=== PATIENT | female | born 1965 | race Caucasian/White ===

== ENCOUNTER 2021-05-22 11:34 | Outpatient (CLI) | payer OTHER, SELFPAY ==
--- NOTE | 2021-05-22 11:30 | ECG_ITS ---
Measurements Intervals [place] Rate: 61 P: 52 [place]: 162 QRS: -31 QRSD: 94 T: 4 QT: 428 QTc: 433 Interpretive Statements SINUS RHYTHM LEFT AXIS DEVIATION INCOMPLETE RIGHT BUNDLE BRANCH BLOCK POOR R WAVE PROGRESSION, ANTERIOR LEADS BORDERLINE T WAVE ABNORMALITY- INFERIOR LEADS BASELINE ARTIFACT- I, II, AVR, AVL BORDERLINE ECG Electronically Signed On 05-22-2021 12:14:52 HOOKER INSPECTOR by Adair Allen D.O.
[2021-05-22 12:18] LABS: Anion Gap 7 mmol/L (8-16); Blood Urea Nitrogen 10 mg/dL (7-17); Calcium 9.5 mg/dL (8.4-10.2); Carbon Dioxide 31 mmol/L (22-30); Chloride 96 mmol/L (98-107); Estimated Glomerular Filt Rate > 60; Glucose 96 mg/dL (65-110); Potassium 3.4 mmol/L (3.4-5.0); Sodium 134 mmol/L (137-145)
== END 2021-05-22 11:35 | disposition home or self-care (01) ==
LOC: ANHSURGERY 11:39
PROVIDERS: Anesthesiology; PCP Family Medicine; Visit Provider Obstetrics & Gynecology
DX: N93.9 Abnormal uterine and vaginal bleeding, unspecified (principal); E11.9 Type 2 diabetes mellitus without complications; I10 Essential (primary) hypertension; Z79.899 Other long term (current) drug therapy; Z01.818 Encounter for other preprocedural examination
CPT/HCPCS: 36415; 80048; 86850; 86900; 86901; 93005

== ENCOUNTER 2021-05-25 18:46 | Observation (INO) | payer OTHER, SELFPAY ==
[2021-05-21 14:38] VITALS: BMI 31.4
--- NOTE | 2021-05-21 14:54 | PC.NURSE ---
Report to the Outpatient Waiting Room, entrance under the green pavilion located off [facility], at time 10:00 on date 05/24/21. OR Time: 12:00. - You and your visitor will be asked a series of questions to screen for COVID 19 for your protection. - A mask is required within the hospital. - Only one visitor is allowed at this time. Patient visitors will be guided where to wait when not with patient. Preoperative COVID Testing Requirements: No COVID Test needed if: (proof is required; if not received patient will have Rapid Test prior to entry) - Patient has received COVID Vaccine at least 14 days prior to procedure date or - Patient has positive COVID test result within last 90 days of surgery date. COVID Test needed if above criteria is not met If not COVID vaccinated a COVID test must be conducted within 72 hours of surgery and patient is asked to isolate self from time of testing until procedure. You will go to the [email or web address] for your COVID testing. The [email or web address] is located at the corner of [address] [facility]. You will only be called if COVID results are positive and your surgeon may reschedule your elective surgery date. Patients may have clear liquids (water, carbonated beverages, clear teas, apple juice) until 3 hours prior to surgery with a maximum of 20 ounces. - No food from midnight until time of surgery - Infants may have breast milk until 4 hours before surgery, infant formula 6 hours prior to surgery. - Children will be allowed to drink immediately following surgery. If applicable, please bring a bottle or sippy cup to assist with drinking. Juice, water, soda, and popsicles are readily available. For infants on formula, please bring formula the day of surgery. Pacifiers are allowed. Take the following medications with a SIP of water the morning of surgery: PAROXETINE, INHALERS (AND BRING ALBUTEROL WITH YOU) Medications to discontinue per physician: VITAMINS/SUPPLEMENTS Date to take last dose: 3 DAYS PRE-OP Please no make-up, nail malawian, hairspray, perfume, deodorant, or body powder the day of surgery. No jewelry (including any body piercings) or valuables the day of surgery, leave them at home. Please take a shower or bath the night before, or the morning of, surgery with an antibacterial soap. Wear comfortable, loose fitting clothing. Children are encouraged to wear pajamas. - Jewelry must be removed prior to entering the operating room. Rings and piercings that are not removed may be cut off. - The hospital will not accept responsibility for valuables. - Please leave all valuables, including medications, at home the day of surgery. If you are going home after surgery, a licensed bulk tank driver must drive you home. - NO public transportation without another adult. - We recommend that an adult stay with you for 24 hours following discharge. - We also recommend that you do not drive, make important decision, drink alcoholic beverages, or take any drugs that were not prescribed by your health care provider for at least 24 hours after your discharge time. For Pediatric surgeries, we recommend two adults accompany the child home (only one inside the building at this time). Follow any additional instructions given to you from your surgeon. Telephone instructions given to DANUTA ABRAHAM and asked if any additional questions and then verbalized understanding. Patient advised to call surgeon office or pre surgery nurse liaison [phone] if any additional questions.
--- NOTE | 2021-05-23 14:46 | WPDANESEPPF ---
Anes - Initial Pre Proc Eval Procedure: Operation Date: 05/24/21 12:00 Proposed Procedures p Laparoscopic Assisted Vaginal Hysterectomy - Umer Kraus MD Date/Time: 05/23/21 14:46 Surgeon: Umer Kraus MD Pre Op Diagnosis: Abnormal Uterine Bleeding Patient Data Age: 55 Gender: F Height: 1.64 m Weight: 84.37 kg Allergies Allergy/AdvReac Type Severity Reaction Status Date / Time Penicillins Allergy Severe Hives Verified 05/21/21 14:28 codeine AdvReac Intermediate Nausea and Verified 05/21/21 14:28 Vomiting Home Medications Medication Instructions Recorded Confirmed Type Isaflush 200 mg PO DAILY 05/21/21 05/24/21 History albuterol sulfate 1 inh INHALATION QID PRN 05/21/21 05/24/21 History atorvastatin 10 mg PO HS 05/21/21 05/24/21 History azelastine 2 spray INTRANASAL HS 05/21/21 05/24/21 History cetirizine [Zyrtec] 10 mg PO HS 05/21/21 05/24/21 History fluticasone propion-salmeterol 2 puff INHALATION BID 05/21/21 05/24/21 History [Advair HFA] fluticasone propionate [Flonase 2 spray INTRANASAL HS 05/21/21 05/24/21 History Allergy Relief] hydrochlorothiazide 25 mg PO DAILY 05/21/21 05/24/21 History losartan 50 mg PO HS 05/21/21 05/24/21 History metformin 500 mg PO BID 05/21/21 05/24/21 History montelukast 10 mg PO HS 05/21/21 05/24/21 History paroxetine HCl 10 mg PO DAILY 05/21/21 05/24/21 History progesterone micronized 100 mg PO HS 05/21/21 05/24/21 History spironolactone 25 mg PO DAILY 05/21/21 05/24/21 History ECG: Date of Service: 05/22/21 Procedure(s): CA 12 lead EKG Accession Number(s): [id number] cc: ~ Measurements Intervals [place] Rate: 61 P: 52 [place]: 162 QRS: -31 QRSD: 94 T: 4 QT: 428 QTc: 433 Interpretive Statements SINUS RHYTHM LEFT AXIS DEVIATION INCOMPLETE RIGHT BUNDLE BRANCH BLOCK POOR R WAVE PROGRESSION, ANTERIOR LEADS BORDERLINE T WAVE ABNORMALITY- INFERIOR LEADS BASELINE ARTIFACT- I, II, AVR, AVL BORDERLINE ECG Electronically Signed On 05-22-2021 12:14:52 LIVER TRIMMER by Adair Allen D.O. Patient hx anesthesia problems: none Family hx anesthesia problems: none Results Review: All pre-operative results and documents have been reviewed as part of the pre-operative evaluation. [facility] Past Medical History Medical History (Updated 05/24/21 @ 08:56 by Umer Kraus MD) Abnormal uterine bleeding (AUB) Arthritis Asthma Diabetes HTN (hypertension) Hypercholesterolemia Obesity Surgical History Surgical History (Updated 05/24/21 @ 08:53 by Umer Kraus MD) History of cholecystectomy History of cholecystectomy Social History Social History Smoking status: Never smoker Alcohol intake: current Alcohol use details: SOCIAL/RARE Substance use: never Substance use type: does not use Living arrangements: with family Spiritual care concerns: No Anes - Eval Final PreProcedure Day of Procedure 05/23/21 14:46 Patient weight: obese Heart: regular rate and rhythm Lungs: clear to auscultation and normal air movement Airway: Mallampati scale class II Neurological: alert and oriented Last oral intake: >/= 8 hours ASA classification: III Emergent: no Anesthetic plan: proceed Anesthesia type and monitoring: general ETT Results Review: All pre-operative results and documents have been reviewed as part of the pre-operative evaluation. Informed Consent: The patient's anesthetic plan and its attendant risks and benefits were discussed with the patient/family/POA. Questions were solicited and answers provided to the satisfaction of the patient/family/POA.
[2021-05-24] VITALS (11 sets, daily range): BP systolic 95–130; BP diastolic 48–82; PULSE 57–70; RESP 9–16; TEMP 36.2–37.3; O2SAT 91–100
--- NOTE | 2021-05-24 08:48 | PM.IMHP ---
H&P: HPI History of Present Illness Date/Time: 05/24/21 08:48 55 y/o nullip with a long history of AUB. Patient s/p ablation in 2019 with no change ein bleeding pattern. Patient using progesterone therapy but still reporting irregular bleeding.EMB shows inactive endometrium. Chief Complaint: abnormal bleeding Review of Systems Review of Systems: fatigue PMFSH Past Medical History Medical History (Updated 05/24/21 @ 08:56 by Umer Kraus MD) Abnormal uterine bleeding (AUB) Arthritis Asthma Diabetes HTN (hypertension) Hypercholesterolemia Obesity Surgical History Surgical History (Updated 05/24/21 @ 08:53 by Umer Kraus MD) History of cholecystectomy History of cholecystectomy Social History Social History Smoking status: Never smoker Alcohol intake: current Alcohol use details: SOCIAL/RARE Substance use: never Substance use type: does not use Living arrangements: with family Spiritual care concerns: No Meds Home Medications and Allergies Home Medications Medication Instructions Recorded Confirmed Type Isaflush 200 mg PO DAILY 05/21/21 05/24/21 History albuterol sulfate 1 inh INHALATION QID PRN 05/21/21 05/24/21 History atorvastatin 10 mg PO HS 05/21/21 05/24/21 History azelastine 2 spray INTRANASAL HS 05/21/21 05/24/21 History cetirizine [Zyrtec] 10 mg PO HS 05/21/21 05/24/21 History fluticasone propion-salmeterol 2 puff INHALATION BID 05/21/21 05/24/21 History [Advair HFA] fluticasone propionate [Flonase 2 spray INTRANASAL HS 05/21/21 05/24/21 History Allergy Relief] hydrochlorothiazide 25 mg PO DAILY 05/21/21 05/24/21 History losartan 50 mg PO HS 05/21/21 05/24/21 History metformin 500 mg PO BID 05/21/21 05/24/21 History montelukast 10 mg PO HS 05/21/21 05/24/21 History paroxetine HCl 10 mg PO DAILY 05/21/21 05/24/21 History progesterone micronized 100 mg PO HS 05/21/21 05/24/21 History spironolactone 25 mg PO DAILY 05/21/21 05/24/21 History Allergies Allergy/AdvReac Type Severity Reaction Status Date / Time Penicillins Allergy Severe Hives Verified 05/21/21 14:28 codeine AdvReac Intermediate Nausea and Verified 05/21/21 14:28 Vomiting Exam Const: General: cooperative Resp: Effort & Inspection: normal respiratory effort Cardio: Rate: regular rate Rhythm: regular rhythm GI: Inspection: normal to inspection Auscultation: normal bowel sounds : Bimanual exam- vagina & uterus: normal bimanual exam and uterine size normal Assessment and Plan Assessment and plan (1) Abnormal uterine bleeding (AUB): Code(s): N93.9 - Abnormal uterine and vaginal bleeding, unspecified Status: Acute Assessment and Plan: Scheduled for a LAVH with BSO. Risk and Benefits reviwed with patient in detail including bleeding, infection, trauma, anesthesia, and blood clots. Patient verbally agrees to proceed.
[2021-05-24] MEDS: ACETAMINOPHEN 500 MG TABLET 1000 MG PO (10:48)
[2021-05-24] MEDS: LACTATED RINGERS 1,000 ML 30 ML IV CONT ×2 (10:48→15:23)
[2021-05-24] MEDS: KETOROLAC 15 MG/ML VIAL (*BKC) IV PUSH (10:49)
--- NOTE | 2021-05-24 12:48 | WPDHPUPDATE1 ---
History and Physical Update Update Date/Time: 05/24/21 12:48 History and Physical has been reviewed, including an updated exam of the patient. There are NO changes in the patient's condition. Risks, benefits, and alternatives have been discussed and questions answered. Patient agrees to proceed with procedure.
[2021-05-24] MEDS: ceFAZolin 2 GM/D5W 50 ML 2 GM/50 ML BAG IVPB (13:10)
[2021-05-24] MEDS: LIDO 1%/EPINEPHRINE 1:100,000 50 ML VIAL 30 ML INFILTRATE (13:53)
[2021-05-24] MEDS: fentaNYL CITRATE INJ (*CRX) 100 MCG/2 ML VIAL 25 MCG IV PUSH ×3 (16:03→16:50)
--- NOTE | 2021-05-24 17:11 | PC.NURSE ---
This patient, Ernestina Nguyen, was received from PACU on 05/24/21 at 1711. Patient/family oriented to unit policies and routines
[2021-05-24] MEDS: DEXTROSE 5%/0.45% SOD CHL 1,000 ML 125 ML IV CONT (17:50)
[2021-05-24] MEDS: KETOROLAC 30 MG/ML VIAL (*BKC) IV PUSH ×2 (17:51→23:51)
[2021-05-24] MEDS: MORPHINE SULFATE (*CRX) 4 MG/ML INJ IV PUSH (19:03)
[2021-05-24] MEDS: metFORMIN HCL 500 MG TABLET PO (19:52)
[2021-05-24] MEDS: SENNA/DOCUSATE SODIUM TABLET 2 TAB PO (20:44)
[2021-05-24] MEDS: LOSARTAN POTASSIUM 50 MG TABLET PO (20:45)
[2021-05-24] MEDS: HYDROcodone/acetaminophen (*CRX) 5-325 MG TABLET 1 TAB PO ×2 (20:45→23:51)
[2021-05-25] MEDS: MORPHINE SULFATE (*CRX) 4 MG/ML INJ IV PUSH (00:57)
[2021-05-25] MEDS: SIMETHICONE 80 MG TAB.CHEW PO ×3 (01:06→08:33)
[2021-05-25] MEDS: HYDROcodone/acetaminophen (*CRX) 10-325 MG TABLET 1 TAB PO ×3 (02:55→10:22)
[2021-05-25 04:50] VITALS: BP 106/57; PULSE 71; RESP 16; TEMP 36.8; O2SAT 99
[2021-05-25] MEDS: ONDANSETRON INJ 4 MG/2 ML VIAL IV PUSH ×2 (05:28→13:07)
[2021-05-25] MEDS: SODIUM CHLORIDE 0.9% IV 500 ML IV CONT ×2 (05:35→19:25)
[2021-05-25] MEDS: FUROSEMIDE INJ 40 MG/4 ML VIAL 10 MG IV PUSH (05:36)
[2021-05-25] MEDS: IBUPROFEN 600 MG TABLET PO (06:07)
[2021-05-25 06:10] LABS: Anion Gap 9 mmol/L (8-16); Basophils Percent Auto 0.1 % (0.2-1.2); Blood Urea Nitrogen 11 mg/dL (7-17); Carbon Dioxide 22 mmol/L (22-30); Chloride 92 mmol/L (98-107); Eosinophils Percent Auto 0.1 % (0-4.4); Estimated CRCL calculation 85 ml/min; Estimated Glomerular Filt Rate > 60; Glucose 125 mg/dL (65-110); Hematocrit 30.5 % (37.0-47.0); Hemoglobin 9.7 g/dL (12.0-15.0); Immature Granulocyte Absolute 0.07 K/mm3 (0.00-0.031); Immature Granulocyte Percent A 0.5 % (0-0.5); Lymphocytes Absolute Auto 1.05 K/mm3 (0.9-3.2); Lymphocytes Percent Auto 7.7 % (18.3-44.2); Mean Corpuscular HGB Conc 31.8 g/dl (32-36); Mean Corpuscular Volume 88.2 fl (80-100); Mean Platelet Volume 11.5 fl (7.4-10.4); Monocytes Absolute Auto 1.1 K/mm3 (0.1-0.6); Monocytes Percent Auto 7.8 % (2.6-8.5); Neutrophils Absolute Auto 11.4 K/mm3 (1.3-6.7); Neutrophils Percent Auto 83.8 % (45.5-73.1); Platelet Count Result 262 k/mm3 (150-375); Potassium 3.6 mmol/L (3.4-5.0); Red Blood Count 3.46 M/mm3 (4.2-5.4); Red Cell Distribution Width 13.5 % (11.5-14.5); Sodium 123 mmol/L (137-145); White Blood Count 13.7 K/mm3 (4.5-10.0)
[2021-05-25] MEDS: FLUTICASONE/SALMETEROL 115-21 MCG INHALER 1 PUFF 2 PUFF INHALATION ×2 (08:16→20:35)
[2021-05-25] MEDS: metFORMIN HCL 500 MG TABLET PO (08:16)
[2021-05-25] MEDS: SPIRONOLACTONE 25 MG TABLET PO (08:17)
[2021-05-25] MEDS: PARoxetine 10 MG TABLET PO (08:17)
[2021-05-25] MEDS: hydroCHLOROthiazide 25 MG TABLET PO (08:17)
[2021-05-25 08:40] VITALS: BP 103/65; PULSE 59; RESP 12; TEMP 36.4; O2SAT 98
--- NOTE | 2021-05-25 09:36 | PM.GYNPNOP ---
GEOPHYSICS TEACHER - A/P Postoperative Procedures: Procedures Operation Date: 05/24/21 12:00 Actual Procedure Side Surgeon p Laparoscopic Assisted Vaginal Hysterectomy with bilateral salpingo-oopherectomy Bilateral Umer Kraus MD Postoperative day: 1 Postoperative status: doing well and other (good urine output post lasix) Postoperative plan: routine post-op care and other (remove rivera and dc later today) Time Spent With Patient Time: Total time spent is greater than 50% in coordination of care (as documented) at patient's floor/unit and/or counseling patient: Time with patient: less than 15 minutes GEOPHYSICS TEACHER- PN:Subj Post-Op Subjective Date/time seen: 05/25/21 09:36 Subjective: patient reports feeling better, pain is well controlled and patient is tolerating oral intake Exam Narrative: inc c/d/i abdomen soft, appropriately tender GEOPHYSICS TEACHER - PN: Obj Data Vital Signs Vital Signs: Vital Signs - 24 hr 05/24/21 10:54 05/24/21 15:22 05/24/21 15:37 Temperature 99.1 F 98.2 F Pulse Rate 68 57 L 63 Respiratory Rate 16 10 L 11 L Blood Pressure 129/77 95/55 L 111/61 Pulse Oximetry 97 100 100 05/24/21 15:52 05/24/21 16:07 05/24/21 16:22 Temperature Pulse Rate 60 57 L 61 Respiratory Rate 14 11 L 9 L Blood Pressure 106/48 L 113/62 112/72 Pulse Oximetry 96 94 91 05/24/21 16:37 05/24/21 16:52 05/24/21 17:15 Temperature 97.2 F L Pulse Rate 64 62 70 Respiratory Rate 12 12 16 Blood Pressure 105/55 L 122/82 130/79 Pulse Oximetry 95 93 97 05/24/21 19:50 05/24/21 23:50 05/25/21 04:50 Temperature 97.8 F 98.0 F 98.2 F Pulse Rate 65 62 71 Respiratory Rate 16 16 16 Blood Pressure 118/71 117/75 106/57 L Pulse Oximetry 97 98 99 05/25/21 08:40 Temperature 97.5 F L Pulse Rate 59 L Respiratory Rate 12 Blood Pressure 103/65 Pulse Oximetry 98 Intake/Output Intake/Output: Intake & Output 05/22/21 05/23/21 05/24/21 05/25/21 23:59 23:59 23:59 23:59 Intake Total 450 3600 Output Total 255 425 Balance 195 3175 Meds/Results Medications: Active Medications Generic Name Dose Route Start Last Admin Trade Name Freq PRN Reason Stop Dose Admin Hydrocodone Bitart/Acetaminophen 1 tab 05/24/21 15:16 05/24/21 23:51 Hydrocodone/Acetaminophen (*Crx) 5-325 Mg Tablet PO 1 tab Q3H PRN Administration Pain Rated 5 or Less Hydrocodone Bitart/Acetaminophen 1 tab 05/24/21 15:16 05/25/21 06:07 Hydrocodone/Acetaminophen (*Crx) 10-325 Mg Tablet PO 1 tab Q3H PRN Administration Pain Rated 6 or Greater Albuterol 1 puff 05/24/21 15:17 Albuterol Sulfate (*Sp) Aerosol 1 Puff INHALATION QID PRN Bronchospasm Hydrochlorothiazide 25 mg 05/25/21 09:00 05/25/21 08:17 Hydrochlorothiazide 25 Mg Tablet PO 25 mg DAILY MARILOU Administration Dextrose/Sodium Chloride 1,000 mls @ 125 mls/hr 05/24/21 15:20 05/25/21 01:53 Dextrose 5% Sodium Chloride 0.45% IV CONT Infused .Q8H MARILOU Infusion Ibuprofen 600 mg 05/24/21 15:16 05/25/21 06:07 Ibuprofen 600 Mg Tablet PO 600 mg Q6H PRN Administration Cramping Ketorolac Tromethamine 30 mg 05/24/21 15:16 05/24/21 23:51 Ketorolac 30 Mg/Ml Vial (*Bkc) IV PUSH 05/29/21 15:15 30 mg Q6H PRN Administration Pain Rated 4-6 Losartan Potassium 50 mg 05/24/21 21:00 05/24/21 20:45 Losartan Potassium 50 Mg Tablet PO 50 mg HS MARILOU Administration Metformin HCl 500 mg 05/24/21 17:00 05/25/21 08:16 Metformin Hcl 500 Mg Tablet PO 500 mg BIDWM MARILOU Administration Morphine Sulfate 4 mg 05/24/21 15:16 05/25/21 00:57 Morphine Sulfate (*Crx) 4 Mg/Ml Inj IV PUSH 4 mg Q4H PRN Administration Severe breakthrough pain Ondansetron HCl 4 mg 05/24/21 15:16 05/25/21 05:28 Ondansetron Inj 4 Mg/2 Ml Vial IV PUSH 4 mg Q6H PRN Administration Nausea And Vomiting Paroxetine HCl 10 mg 05/25/21 09:00 05/25/21 08:17 Paroxetine 10 Mg Tablet PO 10 mg DAILY MARILOU Administration Fluticasone
--- NOTE | 2021-05-25 09:53 | WPDANESPN ---
Anes - Prog Note Post-Op Date/Time: 05/25/21 09:53 Cardiovascular status: normal Respiratory status: normal Airway patency: baseline Mental status: baseline Post-Op hydration status: normal Vital Signs: Last Vital Signs Temp 36.4 C L 05/25/21 08:40 Pulse 59 L 05/25/21 08:40 Resp 12 05/25/21 08:40 BP 103/65 05/25/21 08:40 Pulse Ox 98 05/25/21 08:40 Pain Score (VAS): 0 I/O: Intake & Output 05/24/21 05/25/21 05/25/21 23:59 07:59 15:59 Intake Total 400 3000 600 Output Total 255 125 300 Balance 145 2875 300 Laboratory Tests 05/25/21 05:00 05/25/21 05:00 05/25/21 05/25/21 05:00 05:00 WBC 13.7 H RBC 3.46 L Hgb 9.7 L Hct 30.5 L MCV 88.2 MCH 28.0 MCHC 31.8 L RDW 13.5 Plt Count 262 MPV 11.5 H Immature Gran % (Auto) 0.5 Neut % (Auto) 83.8 H Lymph % (Auto) 7.7 L [place] % (Auto) 7.8 Eos % (Auto) 0.1 Baso % (Auto) 0.1 L Lymph # (Auto) 1.05 [place] # (Auto) 1.1 H Eos # (Auto) 0.0 Baso # (Auto) 0.0 Abs Immat Gran (auto) 0.07 H Absolute Neuts (auto) 11.4 H Absolute Nucleated RBC 0.0 Nucleated RBC % 0.0 Sodium 123 L Potassium 3.6 Chloride 92 L Carbon Dioxide 22 Anion Gap 9 BUN 11 Creatinine 0.70 Estim Creat Clear Calc 85 Estimated GFR > 60 Glucose 125 H Calcium 8.0 L Post-procedural complaints: none Patient Feedback: Patient satisfied with anesthetic care.
[2021-05-25 17:21] VITALS: BP 125/87; PULSE 65; RESP 12; TEMP 36.4; O2SAT 95
[2021-05-25] MEDS: PROMETHAZINE HCL 25 MG/ML AMPUL 12.5 MG IV PUSH (17:54)
[2021-05-25 19:50] VITALS: BP 112/72; PULSE 62; RESP 16; TEMP 36.9; O2SAT 95
[2021-05-25] MEDS: DEXTROSE 5%/0.45% SOD CHL 1,000 ML 125 ML IV CONT (20:39)
[2021-05-25 22:28] VITALS: BP 131/81; PULSE 71; O2SAT 100
[2021-05-25] MEDS: SENNA/DOCUSATE SODIUM TABLET 2 TAB PO (22:28)
[2021-05-25] MEDS: ACETAMINOPHEN 500 MG TABLET 1000 MG PO (22:28)
[2021-05-25] MEDS: LOSARTAN POTASSIUM 50 MG TABLET PO (22:28)
[2021-05-26] MEDS: DEXTROSE 5%/0.45% SOD CHL 1,000 ML 125 ML IV CONT (04:48)
[2021-05-26] MEDS: hydroCHLOROthiazide 25 MG TABLET PO (08:35)
[2021-05-26] MEDS: PARoxetine 10 MG TABLET PO (08:35)
[2021-05-26] MEDS: metFORMIN HCL 500 MG TABLET PO (08:35)
[2021-05-26] MEDS: FLUTICASONE/SALMETEROL 115-21 MCG INHALER 1 PUFF 2 PUFF INHALATION (08:35)
[2021-05-26] MEDS: SPIRONOLACTONE 25 MG TABLET PO (08:35)
[2021-05-26 08:36] VITALS: BP 137/83; PULSE 84; RESP 12; TEMP 36.9; O2SAT 97
[2021-05-26] MEDS: ACETAMINOPHEN 500 MG TABLET 1000 MG PO (08:36)
--- NOTE | 2021-05-26 09:35 | PM.GYNPNOP ---
GAS PLANT REPAIRER - A/P Postoperative Procedures: Procedures Operation Date: 05/24/21 12:00 Actual Procedure Side Surgeon p Laparoscopic Assisted Vaginal Hysterectomy with bilateral salpingo-oopherectomy Bilateral Umer Kraus MD Postoperative day: 2 Postoperative status: doing well, urinary retention (resolved) and other (nausea resolved ) Postoperative plan: routine post-op care, discharge and other Time Spent With Patient Time: Total time spent is greater than 50% in coordination of care (as documented) at patient's floor/unit and/or counseling patient: Time with patient: less than 15 minutes GAS PLANT REPAIRER- PN:Subj Post-Op Subjective Date/time seen: 05/26/21 09:35 Subjective: patient reports feeling better (nausea resolved), patient has no complaints, patient is tolerating oral intake and other (voiding and had BM) Exam Narrative: inc c/d/i abd soft, nt GAS PLANT REPAIRER - PN: Obj Data Vital Signs Vital Signs: Vital Signs - 24 hr 05/25/21 17:21 05/25/21 19:50 05/25/21 22:28 Temperature 97.6 F 98.4 F Pulse Rate 65 62 71 Respiratory Rate 12 16 Blood Pressure 125/87 112/72 131/81 Pulse Oximetry 95 95 100 05/26/21 08:36 Temperature 98.4 F Pulse Rate 84 Respiratory Rate 12 Blood Pressure 137/83 Pulse Oximetry 97 Intake/Output Intake/Output: Intake & Output 05/23/21 05/24/21 05/25/21 05/26/21 23:59 23:59 23:59 23:59 Intake Total 450 7860 2800 Output Total 255 3375 3900 Balance 195 4485 -1100 Meds/Results Medications: Active Medications Generic Name Dose Route Start Last Admin Trade Name Freq PRN Reason Stop Dose Admin Acetaminophen 1,000 mg 05/25/21 18:48 05/26/21 08:36 Acetaminophen 500 Mg Tablet PO 1,000 mg Q6H PRN Administration Pain 1-3 or Fever Hydrocodone Bitart/Acetaminophen 1 tab 05/24/21 15:16 05/24/21 23:51 Hydrocodone/Acetaminophen (*Crx) 5-325 Mg Tablet PO 1 tab Q3H PRN Administration Pain Rated 4-5 Hydrocodone Bitart/Acetaminophen 1 tab 05/24/21 15:16 05/25/21 10:22 Hydrocodone/Acetaminophen (*Crx) 10-325 Mg Tablet PO 1 tab Q3H PRN Administration Pain Rated 6 or Greater Albuterol 1 puff 05/24/21 15:17 Albuterol Sulfate (*Sp) Aerosol 1 Puff INHALATION QID PRN Bronchospasm Hydrochlorothiazide 25 mg 05/25/21 09:00 05/26/21 08:35 Hydrochlorothiazide 25 Mg Tablet PO 25 mg DAILY MARILOU Administration Dextrose/Sodium Chloride 1,000 mls @ 125 mls/hr 05/24/21 15:20 05/26/21 04:48 Dextrose 5% Sodium Chloride 0.45% IV CONT 125 mls/hr .Q8H MARILOU Administration Ibuprofen 600 mg 05/24/21 15:16 05/25/21 06:07 Ibuprofen 600 Mg Tablet PO 600 mg Q6H PRN Administration Cramping Ketorolac Tromethamine 30 mg 05/24/21 15:16 05/24/21 23:51 Ketorolac 30 Mg/Ml Vial (*Bkc) IV PUSH 05/29/21 15:15 30 mg Q6H PRN Administration Pain Rated 4-6 Losartan Potassium 50 mg 05/24/21 21:00 05/25/21 22:28 Losartan Potassium 50 Mg Tablet PO 50 mg HS MARILOU Administration Metformin HCl 500 mg 05/24/21 17:00 05/26/21 08:35 Metformin Hcl 500 Mg Tablet PO 500 mg BIDWM MARILOU Administration Morphine Sulfate 4 mg 05/24/21 15:16 05/25/21 00:57 Morphine Sulfate (*Crx) 4 Mg/Ml Inj IV PUSH 4 mg Q4H PRN Administration Severe breakthrough pain Ondansetron HCl 4 mg 05/24/21 15:16 05/25/21 13:07 Ondansetron Inj 4 Mg/2 Ml Vial IV PUSH 4 mg Q6H PRN Administration Nausea And Vomiting Paroxetine HCl 10 mg 05/25/21 09:00 05/26/21 08:35 Paroxetine 10 Mg Tablet PO 10 mg DAILY MARILOU Administration Promethazine HCl 12.5 mg 05/25/21 17:30 05/25/21 17:54 Promethazine Hcl 25 Mg/Ml Ampul IV PUSH 12.5 mg Q4H PRN Administration Nausea And Vomiting Fluticasone/Salmeterol 2 puff 05/24/21 20:00 05/26/21 08:35 Fluticasone/Salmeterol 115-21 Mcg Inhaler 1 Puff INHALATION 2 puff Q12HRT MARILOU Administration Senna/Docusate Sodium 2 tab 05/24/21 21:00 05/25/21 22:28 Senna/
--- NOTE | 2021-05-26 10:52 | PC.NURSE ---
Discharge instructions given including when to follow up with MD. Pt. verbalizes understanding. No questions or concerns voiced. Anxious for discharge.
[2021-05-26] MEDS: IBUPROFEN 600 MG TABLET PO (11:07)
--- NOTE | 2021-05-28 13:26 | P.OP_ITS ---
Procedure Note - Detailed Date of Procedure 05/28/21 Pre-op Diagnosis Abnormal Uterine Bleeding Post-op Diagnosis same Procedure Performed [facility] Surgeon Umer Kraus MD Anesthesia general Description of Procedure After anesthesia was found be adequate patient was placed in dorsal lithotomy position prepped and draped in usual manner for laparoscopic procedure. A speculum was placed the vagina. A single-tooth tenaculum was utilized to grasp the anterior lip of the cervix. The uterus was sounded to 10cm. A uterine manipulator was placed into the cervix. Gillespie was already in place. The speculum was removed attention was then turned to the abdomen. 5Cc of lidocaine with epi was injected in the infraumbilical fold in a horizontal incision was made through which a Veress needle was inserted into the abdominal cavity. Aspiration was negative therefore the abdomen was insufflated with carbon raimundo xide. After adequate insufflation Veress needle was removed and a 5mm trocar was introduced through the umbilical fold under direct visualization with the scope. Mild arm minimal adhesions were noted to the abdominal wall from the peritoneum in the uterus. A 5mm skin incision was made and a 5mm trocar was introduced into the abdomen for instrumentation on the right and left side of the abdomen. Evaluation of the pelvis revealed a body enlarged and irregular shaped uterus. The fallopian tubes and ovaries appeared normally vaginally and the cul-de-sac was clear the ureters were noted to be deep in the pelvis at this time the right cornu was grasped and the right infundibular pelvic ligament round ligaments were doubly clamped doubly coagulated with the Harmonic scalpel. Same procedure was performed on the left with doubly clamping the infundibular pelvic ligament round ligaments. The bladder flap was created with blunt and coagulation dissection. The remainder of the uterine vessels and anterior and posterior leaves of the broad ligament and away and transected and coagulated in a serial fashion down to the uterine arteries. The surgery was then turned to the vagina. In which a weighted speculum was placed into the vagina and the anterior and posterior lip of the cervix was grasped with single-tooth tenaculum. The cervix was injected circumferentially with 1% lidocaine with epinephrine. And a circumferential incision was made in the vaginal tissue. The posterior cul-de-sac was entered with sharp and blunt dissection. And a longer weighted speculum was placed into the vagina. The bladder or anterior portion of the vagina was then dissected off the cervix. The right uterosacral ligament was clamped transected and suture ligated with 0 Vicryl suture. The left uterosacral ligament was also clamped and transected with 0 Vicryl suture. The parametrial tissue and the uterine arteries were clamped transected and suture ligated with 0 Vicryl suture. The uterus tubes and ovaries was removed from the vagina. The pedicles were examined for hemostasis the vaginal close was then closed in a running locked fashion with 0 Vicryl suture with also closing the uterosacral ligaments in the center. Vagina was packed attention was then turned to the abdomen again and reinsufflated hemostasis was noted at the pedicles. The trocars were removed and all gas was escaped from the abdomen and the incisions were closed with 4 Vicryl suture. Sponge lap and needle counts were correct x2 patient tolerated this procedure well. patient was taken to recovery room in stable condition. Estimated Blood Loss -50.0 Urine Output 800 Drains Yes Packing Yes Pathology yes Complications None Condition stable Disposition PACU
--- NOTE | 2021-05-29 07:29 | OP_ITS ---
cancel DATE OF PROCEDURE: 05/24/2021 PREOPERATIVE DIAGNOSIS: Abnormal uterine bleeding. POSTOPERATIVE DIAGNOSIS: Abnormal uterine bleeding. PROCEDURE PERFORMED: Laparoscopic-assisted vaginal hysterectomy with bilateral salpingo-oophorectomy. ESTIMATED BLOOD LOSS: 50 mL. Grossly normal-appearing tubes and ovaries. DESCRIPTION OF PROCEDURE: The patient was taken to the operating room with anesthesia induction. The patient was placed in a dorsal lithotomy position. She was prepared and draped in a normal sterile fashion. A Gillespie catheter was inserted into the bladder and attached to a straight drainage. After initial preparation, procedure commenced at vaginal speculum was placed. The cervix was visualized. The anterior lip of the cervix was grasped with single-tooth tenaculum and a uterine cavity manipulator was used for manipulation and placement of the vagina. Attention was then turned to the abdomen. An infraumbilical incision was made after infiltrating 3 cc of lidocaine and the Veress needle was gently advanced taking care sensation of penetrating the peritoneum with CO2 infiltration and opening pressure of 7 mm were noted and following this, a pneumoperitoneum of 15 was created. A 5 mm trocar was then passed through the same incision and the laparoscope was being inserted through the trocar sleeve. Visualization of the peritoneal cavity did not reveal any signs of complications from entry. Under direct visualization, a 5 mm ports were then placed laterally on the right and left sides, taking care to inspect anatomical landmarks and vessel. Once the placement of the ports were completed, the actual laparoscopic procedure began and beginning on the right side, the infundibulopelvic ligaments were identified by anterior wall of the abdomen and the uterus alone were confirmed along the pelvic sidewall and the Harmonic Scalpel device was then used to clamp and ligate the IP ligament in 3 sequential bites again being sure to be clear of the ureter. Following this, the broad ligament was sequentially dressed, ligated and cut in the direction of the round ligament, cutting next to the fallopian tubes, the round ligament was then ligated and cut. Following this, the anterior leaf of the broad ligament was then taken down on the left side dissecting down towards the peritoneal reflection at the base of the bladder and adjacent to the cervix. The same procedure was then repeated on the both sides, mid and the anterior leaflet had been appropriately skeletonized. To ensure adequate hemostasis prior to further manipulation, the pedicles of the cardinal ligaments were then ligated and divided on these sides using the Harmonic Scalpel. The patient was then returned to the vaginal aspect of the surgery. The Gillespie catheter was removed. Weighted speculum was placed in the posterior aspect of the vagina. Manipulator was removed. The tenaculum was repositioned anteriorly and one placed posteriorly. A circumferential incision was made at the cervical vaginal reflection after the lidocaine was injected. This was undermined first anteriorly in a colpotomy made without difficulty. This was then repeated posteriorly in a similar colpotomy made. Jori retractors were then placed into each of the incisions beginning 1st on the patient's left. The uterosacral and cardinal ligaments were clamped and divided and suture ligated. Two bites were required to reach the previous dissection margin of the left side. The same pattern then repeated on the patient's right-hand side. At which point, the peritoneum was completely free. Once the suture had been placed and the pedicles secured, the uterus along with both tubes and ovaries were removed transvaginally without difficulty. All
--- NOTE | 2021-06-08 17:13 | PM.DS ---
DS: Admitting Diagnosis Discharge Date 05/26/21 Admitting Diagnosis abnormal uterine bleeding DS: Summary Hospital Course Hospital Course: admitted for LAVH uncomplicated discharged on post operative day 1. follow in 1 week in offce continue hme medications and script for NOrco 5/325 mg oral every 4 hours as needed. Time Spent with Patient Time attestation: Total time spent providing and/or coordinating discharge services: DS: Data Data Completed and Pending Completed studies during hospitalization: Pending at discharge 05/24/21 13:47 Surgical [PTH] Routine Discharge Plan Discharge Attending physician on discharge: Umer Kraus Discharging Clinician: Sarah Trotter Anticipated Discharge Date/Time: 05/26/21 09:37 Patient Disposition: Home, Self-Care Activity: may shower, may drive after 2 weeks and pelvic rest Diet: regular Wound Care Instructions: incision open to air Discharge Instructions: Some Complications to Watch for: ? Excessive incisional or vaginal drainage (more than one pad an hour). Additional Instructions: ? Expect some vaginal spotting for 2-4 days. ? Nothing vaginally (i.e. douching, intercourse, tampons) until follow up visit. Some Complications to Watch for: ? Excessive incisional or vaginal drainage (more than one pad an hour). Additional Instructions: ? Expect some vaginal spotting for 2-4 days. ? Nothing vaginally (i.e. douching, intercourse, tampons) until follow up visit. Patient Instructions: Laparoscopic Hysterectomy (DC) Follow-up/Referrals: Umer Kraus MD [Physician] - 1 Week Discharge Medications: Continued losartan 50 mg Tablet 50 mg PO HS RF: 0 metformin 500 mg Tablet 500 mg PO BID RF: 0 paroxetine HCl 10 mg Tablet 10 mg PO DAILY RF: 0 cetirizine [Zyrtec] 10 mg Tablet 10 mg PO HS RF: 0 atorvastatin 10 mg Tablet 10 mg PO HS RF: 0 spironolactone 25 mg Tablet 25 mg PO DAILY RF: 0 montelukast 10 mg Tablet 10 mg PO HS RF: 0 hydrochlorothiazide 25 mg Tablet 25 mg PO DAILY RF: 0 albuterol sulfate 90 mcg/actuation Hfa Aerosol Inhaler 1 inh INHALATION QID PRN (Reason: Bronchospasm) RF: 0 fluticasone propionate [Flonase Allergy Relief] 50 mcg/actuation [place],Suspension 2 spray INTRANASAL HS RF: 0 progesterone micronized 100 mg Capsule 100 mg PO HS RF: 0 Advair HFA 115-21 mcg/actuation Hfa Aerosol Inhaler 2 puff INHALATION BID RF: 0 azelastine 205.5 mcg (0.15 %) [place],Non-Aerosol 2 spray INTRANASAL HS RF: 0 Isaflush 200 mg PO DAILY RF: 0 Date of admission: 05/25/21 18:46 Primary Care Provider: Jose,Cynthia Sanabria Admitting Provider: Umer Kraus Attending physician on admission: Sarah Trotter Condition: Stable
== END 2021-05-26 11:10 | disposition home or self-care (01) ==
LOC: ANHSURGERY 18:55 → ANHOB2 05-26 09:38
PROVIDERS: Admitting Provider Obstetrics & Gynecology; PCP Family Medicine; Visit Provider Obstetrics & Gynecology Gynecology
PROC: 0UT9FZZ Resection of Uterus, Via Natural or Artificial Opening With Percutaneous Endoscopic Assistance (ICD-10-PCS; CPT 58552; principal; 2021-05-24 12:00)
DX: D25.1 Intramural leiomyoma of uterus (principal); D25.0 Submucous leiomyoma of uterus; N93.9 Abnormal uterine and vaginal bleeding, unspecified; E11.9 Type 2 diabetes mellitus without complications; I10 Essential (primary) hypertension; E78.00 Pure hypercholesterolemia, unspecified; Z79.84 Long term (current) use of oral hypoglycemic drugs
CPT/HCPCS: 58552; 36415; 80048; 85025; 86850; 86900; 86901; 88307; 93005; 94640; 99199; A9270; G0378; J0690; J1100; J1885; J1940; J2250; J2270; J2405; J2550; J2704; J2710; J3010; J7040; J7120